=== PATIENT | male | born 1990 | race African-American/Black ===

== ENCOUNTER 2017-09-09 21:19 | Emergency (ER) | payer BC ==
[2017-09-09 21:27] VITALS: TEMP 97.7
[2017-09-09] MEDS ORDERED: IPRATROPIUM-ALBUTEROL 3 ML NEB INHALATION STA (21:42)
[2017-09-09] MEDS ORDERED: ALBUTEROL NEBULIZED 2.5 MG/3 ML INHALATION STA ×2 (21:50→23:45)
--- NOTE | 2017-09-09 21:50 | ED ---
SOB HPI - General Chief Complaint: Shortness of Breath Stated Complaint: LO Time Seen by Provider: 09/09/17 21:29 Source: patient, family Mode of arrival: wheelchair Limitations: no limitations - History of Present Illness Initial Comments: Patient is 27-year-old man with history of asthma, presenting for shortness of breath, cough and wheezing. Patient states feels like his asthma is flaring up. The patient did run out of his albuterol inhaler. States that last steroid use and also last hospitalization were about 2 years ago when he was in [place]. 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 No fever or chills. Nonproductive cough. No chest pain. 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 ROS Other: All systems not noted in ROS Statement are negative. Constitutional: Denies: fever, chills ENT: Denies: congestion Respiratory: Reports: cough, dyspnea, wheezes Cardiovascular: Denies: chest pain, palpitations, syncope Gastrointestinal: Denies: abdominal pain, vomiting, diarrhea Musculoskeletal: Denies: back pain Skin: Denies: rash Neurological: Denies: headache Past Medical History Past Medical History: Asthma History of Any Multi-Drug Resistant Organisms: None Reported Past Surgical History: No Surgical Hx Reported Past Psychological History: No Psychological Hx Reported Smoking Status: Never smoker Past Alcohol Use History: None Reported Past Drug Use History: None Reported General Exam Limitations: no limitations General appearance: alert, in distress (Mild respiratory distress, tachypneic) Head exam: Present: normocephalic Respiratory exam: Present: respiratory distress (Tachypnea), wheezes, prolonged expiratory. Absent: rales, rhonchi, stridor, chest wall tenderness, accessory muscle use, decreased breath sounds Cardiovascular Exam: Present: normal rhythm, tachycardia, normal heart sounds. Absent: systolic murmur, diastolic murmur, rubs, gallop GI/Abdominal exam: Present: soft. Absent: tenderness, guarding, rebound Extremities exam: Present: normal inspection, normal capillary refill. Absent: pedal edema, calf tenderness Back exam: Present: normal inspection. Absent: CVA tenderness (R), CVA tenderness (L) Neurological exam: Present: alert Skin exam: Present: warm, dry, intact, normal color. Absent: rash Course Vital Signs 09/09/17 09/09/17 09/09/17 21:25 21:32 21:45 Temperature 97.7 F Pulse Rate 118 H 128 H Respiratory 32 H 26 H Rate Blood Pressure 157/101 O2 Sat by Pulse 100 Oximetry 09/09/17 09/09/17 09/09/17 21:53 22:22 22:43 Temperature Pulse Rate 123 H 108 H 119 H Respiratory Rate Blood Pressure O2 Sat by Pulse Oximetry 09/09/17 09/09/17 09/09/17 22:48 23:00 23:58 Temperature Pulse Rate 121 H 119 H 123 H Respiratory 20 22 Rate Blood Pressure 147/92 147/65 O2 Sat by Pulse 100 97 Oximetry 09/10/17 09/10/17 00:07 00:23 Temperature Pulse Rate 124 H 114 H Respiratory 20 Rate Blood Pressure 157/96 O2 Sat by Pulse 97 Oximetry Disposition Clinical Impression: Asthma with exacerbation Disposition: HOME SELF-CARE Condition: Good Instructions: Asthma (ED) Prescriptions: Albuterol Inhaler [Ventolin Hfa Inhaler] 1 - 2 puff INHALATION Q6HR PRN #1 inhaler PRN Reason: Wheezing predniSONE 60 mg PO DAILY #30 tab Is patient prescribed a controlled substance at d/c from ED?: No Referrals: None,Stated [Primary Care Provider] - 1-2 days Nano Sweet MD [STAFF PHYSICIAN] - 1-2 days
[2017-09-09] MEDS ORDERED: predniSONE 20 MG TAB PO STA (22:36)
[2017-09-10] MEDS ORDERED: ALBUTEROL NEBULIZED 2.5 MG/3 ML INHALATION STA (00:15)
[2017-09-10 00:24] VITALS: BP 157/96; PULSE 114; RESP 20
--- NOTE | 2017-09-10 01:07 | XR ---
EXAMINATION TYPE: XR chest 1V portable DATE OF EXAM: 09/10/2017 COMPARISON: NONE HISTORY: Difficulty breathing TECHNIQUE: Single frontal view of the chest is obtained. FINDINGS: Heart and mediastinum are normal. Lungs are clear. Diaphragm is normal. There is old right -sided healed rib fractures. Bony thorax is otherwise intact. There is no sign of pleural effusion. IMPRESSION: No active cardiopulmonary disease. Normal heart. No pneumothorax.
== END 2017-09-10 01:31 | disposition home or self-care (01) ==
LOC: EC 21:19
DX: J45.901 Unspecified asthma with (acute) exacerbation (principal); Z91.018 Allergy to other foods
CPT/HCPCS: 99285; 94640 ×2; 71045; J7512